=== PATIENT | male | born 1995 | race Caucasian/White ===

== ENCOUNTER 2015-12-13 12:35 | Outpatient (RCR) | END 2016-03-12 | LOC: WSOH | DX: Z02.89 Encounter for other administrative examinations (principal) ==

== ENCOUNTER 2018-03-07 23:29 | Emergency (ER) | payer SELFPAY ==
[~2018-03-07] VITALS: Ht 180.3 cm; Wt 90.9 kg
[2018-03-07 23:34] VITALS: BP 163/97; TEMP 97.1
[2018-03-08] MEDS ORDERED: NORCO 325 MG-51 TAB PO (00:28)
[2018-03-08 01:04] VITALS: PULSE 65
== END 2018-03-08 01:05 | disposition home or self-care (01) ==
LOC: COL.ER 23:29
DX: S43.084A Other dislocation of right shoulder joint, initial encounter (principal); W10.9XXA Fall (on) (from) unspecified stairs and steps, initial encounter
CPT/HCPCS: J3010

== ENCOUNTER → 2018-09-03 | Outpatient (CLI) | payer BC ==
[~2018-09-03] MED LIST: NORCO 325 MG-51 TAB PO
== END ==
LOC: COL.RAD 12:33
DX: N50.82 Scrotal pain (principal); N50.89 Other specified disorders of the male genital organs